=== PATIENT | male | born 1985 | race Two or more races ===

== ENCOUNTER 2024-06-30 21:10 | Emergency (ER) | payer OTHER ==
[~2024-06-30] VITALS: Ht 175.3 cm; Wt 124.7 kg
[2024-06-30] MEDS ORDERED: COZAAR25 MG (21:16)
[2024-06-30] MEDS ORDERED: NORVASC2.5 M1 (21:16)
[2024-06-30] MEDS ORDERED: LIPITOR40 M1 (21:17)
[2024-06-30] MEDS ORDERED: CLONIDINE HCL 0.1 MG TABLET PO ONE (22:00)
[2024-06-30] MEDS ORDERED: FUROsemide 20 MG TABLET PO SCH (22:15)
[2024-06-30] MEDS ORDERED: LABETALOL HCL 100 MG/20 ML ML IV PUSH ONE (23:45)
[2024-07-01 01:01] LABS: HEMATOCRIT 44.4 % (39.0-48.0); HEMOGLOBIN 15.5 g/dL (13-16.00); MEAN CELL VOLUME 80.6 fL (80.0-100.00); MEAN CORPUSCULAR HEMOGLOBIN 28.2 pg (27.00-32.0); PLATELET COUNT 313 K/uL (150-450); RED BLOOD COUNT 5.51 M/uL (4.00-6.00); RED CELL DISTRIBUTION WIDTH 14.8 % (11.5-14.5)
[2024-07-01 01:31] LABS: ALBUMIN 3.9 gm/dL (3.4-5.0); BILIRUBIN TOTAL 0.34 mg/dL (0.3-1.2); CREATININE SERUM 1.18 mg/dL (0.70-1.30); GFR 68.72; GLOBULINA 4.5 G/DL (2.4-3.5); POTASSIUM 4.37 mEq/L (3.5-5.1); TOTAL PROTEIN 8.4 gm/dL (6.4-8.2)
[2024-07-01] MEDS ORDERED: NORVASC10 MG PO (03:23)
[2024-07-01] MEDS ORDERED: COZAAR50 MG PO (03:23)
[2024-07-01] MEDS ORDERED: LIPITOR20 MG PO (03:23)
== END 2024-07-01 04:05 ==
LOC: ER 21:12
PROVIDERS: General Practice
DX: I10 Essential (primary) hypertension (principal)